=== PATIENT | female | born 2000 | race Caucasian/White ===

== ENCOUNTER 2019-03-09 16:13 | Emergency (ER) | payer OTHER, BC ==
[2019-03-09 17:04] VITALS: BP 122/78
[2019-03-09] MEDS ORDERED: DEXAMETHASONE SOD PHOS INJ 10 MG/1 ML VIAL IM ONE (17:23)
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
== END 2019-03-09 17:55 | disposition home or self-care (01) ==
LOC: ER 16:13
DX: M25.552 Pain in left hip (principal); M46.1 Sacroiliitis, not elsewhere classified; V47.5XXA Car driver injured in collision with fixed or stationary object in traffic accident, initial encounter
CPT/HCPCS: 99283; 96372; J1100